=== PATIENT | male | born 1960 | race Hispanic/Latino ===

== ENCOUNTER 2018-01-20 11:14 | Day surgery (SDC) | payer BC, MEDICARE ==
[2018-01-20] MEDS ORDERED: Sodium Chloride 0.9% 30 ML ONE (12:22)
[2018-01-20] MEDS ORDERED: HYDROcodone/Acetaminophen 5/325 mg Tablet PO PRN (15:52)
[2018-01-20 17:45] VITALS: BP 136/77; TEMP 98.3
== END 2018-01-20 17:45 | disposition home or self-care (01) ==
LOC: ONC/OP 11:14
PROVIDERS: ATTEND Internal Medicine Nephrology
PROC: 30233N1 Transfusion of Nonautologous Red Blood Cells into Peripheral Vein, Percutaneous Approach (ICD-10-PCS; principal; 2018-01-20)
DX: N18.9 Chronic kidney disease, unspecified (principal); D63.1 Anemia in chronic kidney disease
CPT/HCPCS: 36430; 86850; 86900; 86901; A4216; P9016

== ENCOUNTER 2018-03-23 01:38 | Inpatient (IN) | payer MEDICARE, BC ==
[2018-03-23 02:13] LABS: #Eosinphils 0.1 thou/uL (0.0-0.7); #Lymphocytes 1.9 thou/uL (1.20-3.40); #Monocytes 0.9 thou/uL (0.11-0.59); #Neutrophils 5.6 thou/uL (1.40-6.50); %Basophils 0.2 % (0.0-1.0); %Eosinophils 1.4 % (0.0-10.0); %Lymphocytes 22.5 % (21.0-51.0); Hemoglobin 10.9 g/dL (14.0-18.0); Mean Corpuscular HGB CONC 31.4 g/dL (32.0-36.0); Mean Corpuscular Hemoglobin 30.6 pg (27.0-31.0); Mean Corpuscular Volume 97.6 fl (80.0-94.0); Mean Platelet Volume 6.6 fL (7.4-10.4); Platelet Count 303 thou/uL (130-400); RBC Distribution Width 16.8 % (11.5-14.5); Red Blood Cell (RBC) Count 3.55 mill/uL (4.70-6.10); White Blood Cell (WBC) Count 8.6 thou/uL (4.8-10.8)
[2018-03-23] MEDS ORDERED: Morphine 4 MG/ML VIAL ONE ×2 (02:17→03:22)
[2018-03-23] MEDS ORDERED: Ondansetron ODT 4 MG TAB ONE ×2 (02:18→02:23)
[2018-03-23 02:30] LABS: INR-International Normal Ratio 2.5; PTT 49.1 SEC (22.9-36.1); Prothrombin Time 28.1 SEC (12.0-14.7)
[2018-03-23 02:37] LABS: ALT (SGPT) 13 U/L (8-55); AST (SGOT) 12 U/L (5-34); Albumin 4.1 g/dL (3.5-5.0); Alkaline Phosphatase 140 U/L (40-150); Anion Gap 15 mmol/L (10-20); BUN (Urea Nitrogen) 26 mg/dL (8.4-25.7); Bilirubin, Total 0.6 mg/dL (0.2-1.2); Calc. Creatinine Clearance 0 mL/min (70-130); Calcium 9.7 mg/dL (7.8-10.44); Carbon Dioxide 32 mmol/L (22-29); Chloride 95 mmol/L (98-107); Estimated GFR-MDRD 9; Globulin 3.5 g/dL (2.4-3.5); Glucose 136 mg/dL (70-105); Lipase 89 U/L (8-78); Protein, Total 7.6 g/dL (6.0-8.3); Sodium 137 mmol/L (136-145)
[2018-03-23] MEDS ORDERED: Promethazine HCl 25 MG/ML VIAL ONE (02:46)
[2018-03-23 02:52] LABS: CKMB 0.8 ng/mL (0-6.6); Troponin I 0.022 ng/mL (< 0.028)
[2018-03-23] MEDS ORDERED: Phytonadione 10 MG/ML AMP SLOW IVP SCH ×2 (03:30→03:45)
[2018-03-23] MEDS ORDERED: HUMAN PROTHROMBIN COMPLX IV SCH (03:30)
[2018-03-23] MEDS ORDERED: ADMIXTURE FEE IV SCH (03:30)
[2018-03-23 03:59] LABS: Hemoglobin 9.5 g/dL (14.0-18.0)
[2018-03-23] MEDS ORDERED: Phytonadione 10 MG/ML AMP ONE (04:22)
[2018-03-23] MEDS ORDERED: Morphine 4 MG/ML VIAL SLOW IVP PRN (05:10)
[2018-03-23] MEDS ORDERED: Ondansetron PF 4 MG/2 ML Vial IVP PRN ×2 (05:12→06:03)
[2018-03-23] MEDS ORDERED: Ondansetron ODT 4 MG TAB SL PRN (05:12)
[2018-03-23] MEDS ORDERED: HumaLOG 300 UNITS/3 ML VIAL SC PRN ×2 (06:03)
[2018-03-23] MEDS ORDERED: hydrALAZINE 20 MG/ML VIAL SLOW IVP PRN (06:03)
[2018-03-23] MEDS ORDERED: Dextrose 5% in Water 1,000 ML IV PRN (06:03)
[2018-03-23] MEDS ORDERED: Ondansetron ODT 4 MG TAB PO PRN (06:03)
[2018-03-23 06:46] VITALS: BMI 1260.0
--- NOTE | 2018-03-23 07:24 | HP ---
PRIMARY CARE PHYSICIAN: Dr. Serna PRIMARY CEMENT MASON: Dr. Norris. CHIEF COMPLAINT: Left lower quadrant abdominal pain. HISTORY OF PRESENT ILLNESS: This is a 57-year-old male who presents to [facility] Emergency Department complaining of sudden onset of lower quadrant abdominal pain with associated angeline sis x2. The patient states he was at home watching TV when he noticed a sudden stabbing sensation in his left lower abdomen without specific trauma, injury, fall or increased activity level. The patie nt denies any specific diarrhea, change to his bowel habits or blood in the urine. The patient is re ceiving hemodialysis Tuesday, Tuesday, Tuesday with known end-stage renal disease, status post right nephrectomy. The patient denied any specific fever or chills, but had associated nausea and vomiting . The patient did not take any specific medications at home to relieve the symptoms and presented to the emergency room for evaluation. In the emergency room, patient underwent CT imaging of the abdom en and pelvis showing evidence of a left subcapsular and retroperitoneal hemorrhage in the context of chronic Coumadin therapy for right lower extremity DVT. The patient states he was diagnosed jazz oliveira 4 months prior with right lower extremity DVT and placed on Coumadin, monitored on a weekly ba sis. INR in the emergency room was noted 2.5, at which point the patient received vitamin K 10 mg IV push as well as Kcentra 1000 units x1 dose. The patient also received a total of 8 mg of morphine s ulfate, Phenergan and Zofran intravenously. The patient was also noted with a hemoglobin level rangi ng between 9.5-10.9, previously noted 11.9 on 02/27/2018. The patient was referred to the [facility] t Service for evaluation and admission. PAST MEDICAL HISTORY: 1. End-stage renal disease with hemodialysis Tuesday, Tuesday, and Tuesday. 2. Hypertension. 3. Right lower extremity deep venous thrombosis on chronic Coumadin. 4. Diabetes mellitus type 2 on oral hypoglycemics. PAST SURGICAL HISTORY: 1. Status post renal transplant. 2. Status post peritoneal dialysis catheter placement in 2014. 3. Status post right upper extremity AV fistula placement. CURRENT MEDICATIONS: Based on pervious admission. 1. Lipitor 80 mg p.o. at bedtime. 2. Calcium with vitamin D 1 tablet p.o. b.i.d. 3. Nifedipine XL 90 mg p.o. daily. 4. Actos 45 mg p.o. daily. 5. Calcitriol 0.5 mcg p.o. daily. 6. Clonidine 0.2 mg p.o. t.i.d. 7. Amaryl 4 mg p.o. q.a.m. 8. CellCept 1000 mg p.o. b.i.d. 9. Prednisone 5 mg p.o. daily. 10. Sodium bicarbonate 2600 mg p.o. b.i.d. 11. Prograf 3 mg p.o. b.i.d. ALLERGIES: No known drug allergies. FAMILY HISTORY: Mother and father are . No inheritable diseases per patient report. SOCIAL HISTORY: No alcohol, tobacco or illicit drug use. with 3 children. Resides in the [facility]. REVIEW OF SYSTEMS: The following complete review of systems was negative, unless otherwise mentioned in the HPI or below: Constitutional: Weight loss or gain, ability to conduct usual activities. Skin: Rash, itching. Eyes: Double vision, pain. ENT/Mouth: Nose bleeding, neck stiffness, pain, tenderness. Cardiovascular: Palpitations, dyspnea on exertion, orthopnea. Respiratory: Shortness of breath, wheezing, cough, hemoptysis, fever or night sweats. Gastrointestinal: Poor appetite, abdominal pain, heartburn, nausea, vomiting, constipation, or diarrhea. Genitourinary: Urgency, frequency, dysuria, nocturia. Musculoskeletal: Pain, swelling. Neurologic/Psychiatric: Anxiety, depression. Allergy/Immunologic: Skin rash, bleeding tendency. PHYSICAL EXAMINATION: VITAL SIGNS: On admission, blood pressure 191/108, pulse 81, respiratory rate 26, temperature 97.6 d egrees Fahrenheit, O2 saturation 100% on room air. GENERAL APPEARANCE: This is a 57-year-old male, alert and oriented x3, pleasant, conversant , in no acute distress. HEENT: Pupils are equal, round, reactive to light and accommodation. Extraocular muscles are intact . No scleral icterus, no conjunctival injection. Nares patent. OP is clear. NECK: Supple, no cervical adenopathy, no thyromegaly, no carotid bruits, no JVD appreciated. Cervic al spine full active and passive range of motion. No meningeal signs appreciated. CHEST: Lungs are clear to auscultation bilaterally. CARDIOVASCULAR: S1, S2 with a 1/6 systolic ejection murmur loudest in the left upper sternal border. ABDOMEN: Rounded, soft, with tenderness to palpation in the left upper and left lower quadrant. No rebound or guarding noted. No palpable mass. Bowel sounds are positive in all 4 quadrants. EXTREMITIES: Warm and dry with fair turgor. Right lower extremity is larger than left lower extremi ty at the calf. Pulses are palpable distally at the dorsalis pedis, posterior tibial, and popliteal arteries bilaterally. Capillary refill less than 2 seconds. NEUROLOGIC: Cranial nerves II-XII are grossly intact. No focal or lateralizing signs appreciated. PERTINENT LABORATORY AND X-RAY FINDINGS: Sodium 137, potassium 5.0, chloride 95, CO2 of 32, BUN 26, creatinine 6.48, estimated GFR of 9, glucose 136, calcium 9.7. LFTs within normal limits. BNP 661. Lipase 89. CBC showed a hemoglobin ranging between 9.5-10.9, MCV 98, platelet count 303 with normal differential. PT 28.1, INR 2.5, PTT 49.1. CT of the abdomen and pelvis dated 03/23/2018 showed a left subcapsular and retroperitoneal hemorrhag e. Portable chest x-ray dated 03/23/2018 by my interpretation shows no acute cardiopulmonary process . EKG dated 03/23/2018 by my interpretation shows a sinus mechanism with heart rate in the 80s. Nor mal R-wave progression noted in the precordial leads. Left axis deviation noted. No acute ST-T wave changes appreciated. ASSESSMENT AND PLAN: 1. Left renal hemorrhage. The patient will be admitted to the Critical Care Unit. Suspect spontane ous in the context of chronic Coumadin therapy. We will consult Urology and Nephrology Service. Ser ial H&H monitoring. Pain control with morphine sulfate 4 mg IV q.4h. p.r.n. 2. Acute on chronic macrocytic anemia. Suspect secondarily to acute hemorrhage and blood loss due t o #1. Continue serial H&H monitoring. CBC in the a.m. 3. End-stage renal disease with hemodialysis. We will consult Nephrology Service for ongoing timing of hemodialysis. No current evidence to suggest acute volume overload. 4. Diabetes mellitus type 2. Insulin sliding scale for reflexive coverage. Accu-Cheks before meals and at bedtime. ADA diet. 5. Hypertension. Resume home antihypertensive regimen and monitor serial blood pressure trend. 6. Prophylaxis. Hold devices due to prior history of right lower extremity DVT, Pepcid 20 mg p.o. b.i.d. 7. Code status is full. Surrogate medical decision maker is the patient's spouse.
[2018-03-23] MEDS ORDERED: Epoetin (ESRD) 10,000 UNITS/ML VIAL SC SCH (08:45)
[2018-03-23] MEDS: cloNIDine 0.2 MG TAB PO SCH ×3 (09:00→22:01)
--- NOTE | 2018-03-23 09:01 | CT ---
PRELIMINARY REPORT/[facility]/EMERGENTY AFTER-HOURS PROCEDURE Findings discussed with BLAIR SALAS MD at time of interpretation. Initial Report created on 03/23/2018 2:53 AM Central Time ([place] & [place]) CT Abdomen and Pelvis With Intravenous Contrast EXAM DATE/TIME: Exam ordered 03/23/2018 2:29 AM CLINICAL HISTORY: 57 years old, male; Pain; Abdominal pain; Localized; Left lower quadrant (llq); Prior surgery; Patien t HX: Abrupt onset llq abdominal pain. 2 episodes of emesis since. Waxing and waning in intensity. De nies inguinal or testicular pain. Denies changes in bms. Has HX of HTN and renal failure, on dialysis mwf, anuric now. S/P right nephrectomy. TECHNIQUE: Axial computed tomography images of the abdomen and pelvis with intravenous contrast. Coronal reforma tted images were created and reviewed. COMPARISON: No relevant prior studies available. FINDINGS: Lung bases: Bibasilar subsegmental atelectasis. Pleural space: Trace right pleural effusion. ABDOMEN: Liver: Unremarkable. No mass. Gallbladder and bile ducts: Unremarkable. No calcified stones. No ductal dilation. Pancreas: Unremarkable. No mass. No ductal dilation. Spleen: Unremarkable. No splenomegaly. Adrenals: Unremarkable. No mass. Kidneys and ureters: Multiple indeterminate low attenuation lesions in both kidneys, the largest of w hich measures 3.2 cm and the right kidney, potentially hyperdense cysts. Neoplasm not excluded. There is extensive left perinephric/paranephric hematoma and contusion extending 19 cm in maximum dimensio n (craniocaudal). In addition, there is a 10 cm (craniocaudal) subcapsular left renal hematoma. There are multiple large foci of extravasated intravascular contrast in both the subcapsular and perinephr ic hematomas, indicating brisk active hemorrhage. Endstage renal disease of both kidneys which are ma rkedly atrophic and demonstrate marked cortical thinning. Stomach and bowel: Colonic diverticulosis. No diverticulitis. No bowel wall thickening or intestinal obstruction. PELVIS: Appendix: Normal appendix. Bladder: Unremarkable. No mass. Reproductive: Unremarkable as visualized. ABDOMEN and PELVIS: Intraperitoneal space: Unremarkable. No free air. No significant fluid collection. Bones/joints: No acute fracture. No dislocation. Soft tissues: Right inguinal hernia containing fat only. Vasculature: Unremarkable. No abdominal aortic aneurysm. Lymph nodes: Unremarkable. No enlarged lymph nodes. IMPRESSION: 1. Large actively hemorrhaging subcapsular left renal and left perinephric/paranephric hematomas. The re is underlying marked atrophy and cortical thinning of both kidneys which demonstrate endstage renal disease. Allowing for this, it is difficult to tell if the left subcapsular renal hematoma is c ompressing the renal parenchyma (Page kidney) or not. Correlate for coagulopathy and history of traum a. 2. Multiple indeterminate low attenuation lesions in both kidneys, the largest of which measures 3.2 cm and the right kidney, potentially hyperdense cysts. Neoplasm not excluded. Thank you for allowing us to participate in the care of your patient. Dictated and Authenticated by: Dave Berrios MD 03/23/2018 2:53 AM Central Time ([place] & [place]) FINAL REPORT CT ABDOMEN AND PELVIS WITH CONTRAST: Date: 03/23/18 HISTORY: Left lower quadrant pain. History of right nephrectomy. COMPARISON: None. FINDINGS: Mild interstitial thickening lung bases. Small effusions. There are a few ground-glass opacities in t he right middle lobe. Heart size mildly enlarged. Large subcapsular hematoma with active contrast extravasation from the left kidney with moderate size retroperitoneal hematoma. Kidneys are atrophic. Moderate diverticular disease sigmoid colon. Evidenc e of right pelvic surgery. IMPRESSION/IMPRESSION: Findings and impression are concordant with the preliminary report by Zackary. POS: [facility]
--- NOTE | 2018-03-23 09:06 | RAD ---
CHEST 1 VIEW: HISTORY: Chest pain. Emesis. Left lower quadrant pain. COMPARISON: Exam from 2006. FINDINGS: Heart size is upper limits of normal. Mild increased interstitial markings. No focal airspace conso lidation. Mild blunting of both lateral costophrenic sulci. IMPRESSION: Mild cardiomegaly and early edema/volume overload. POS: [facility]
[2018-03-23 09:50] LABS: Hemoglobin 8.9 g/dL (14.0-18.0)
[2018-03-23 09:56] LABS: INR-International Normal Ratio 1.4
--- NOTE | 2018-03-23 11:02 | CON ---
DATE OF CONSULTATION: 03/23/2018 RENAL MEDICINE HISTORY OF PRESENT ILLNESS: Mr. Davison is a 57-year-old male with ESRD, failed renal trans plant, recently status post transplant nephrectomy, status post DVT and admitted for abdominal pain. This was said to be acute in onset. CT scan of the abdomen showed retroperitoneal hemorrhage of the kidney. His Coumadin has been placed on hold. He has received vitamin K and Kcentra. He is curren tly on pain control. We are now being consulted for his maintenance hemodialysis. Please note the p antionette did receive dialysis yesterday. He still has an abdominal pain as of this morning. REVIEW OF SYSTEMS: Positive for abdominal pain. No chest pain or shortness of breath, no nausea, no vomiting, no diarrhea, no constipation, no fever or chills, no gross hematuria, no diarrhea, no sync opal episode, no sore throat, no joint pains, no new skin rash, no dysuria, no hematochezia, no melen a, no hematemesis. PAST MEDICAL HISTORY: ESRD - maintenance hemodialysis Tuesday, Tuesday, and Tuesday, longstanding hy pertension, type 2 diabetes mellitus, status post DVT. PAST SURGICAL HISTORY: 1. Status post failed renal transplant. 2. Status post transplant nephrectomy of allograft. 3. Status post PD catheter placement with subsequent removal. 4. Status post cuffed hemodialysis catheter placement. 5. Status post AV fistula placement. HOME MEDICATIONS: Include the following; Lipitor 80 mg at bedtime, calcium 1 tab b.i.d., nifedipine XL 90 mg daily, Actos 45 mg daily, calcitriol 0.5 mcg daily, clonidine 0.2 mg p.o. t.i.d., Amaryl 4 m g q.a.m. SOCIAL HISTORY: The patient is . He has 3 children. He lives in [place]. He is a retired forger. He denies any history of smoking, no alcohol intake. Status post blood transfusion. No IV drug abuse. Education high school. ALLERGIES: None. TRAUMA: None. IMMUNIZATIONS: Up to date. HOSPITALIZATIONS: Please see past medical history. FAMILY HISTORY: No family history of ESRD. PHYSICAL EXAMINATION: VITAL SIGNS: Blood pressure is noted at 103/74, heart rate 88, respiratory rate 10, pulse ox 100%. GENERAL: Awake, supine, comfortable, not in overt distress. SKIN: Adequate turgor. HEENT: He has slightly pale conjunctivae, anicteric sclerae. NECK: No neck mass, no carotid bruits, no JVD. CHEST: No deformities. LUNGS: Clear breath sounds, no wheezing, no crackles. HEART: Normal sinus rhythm. No murmurs, no gallops, no rubs. ABDOMEN: Globular, soft, nontender, no masses. EXTREMITIES: No edema, no deformities. NEUROLOGIC: Moving all extremities. No tremors, asterixis, no ataxia. LABORATORY DATA: Laboratories of 03/23/2018; white count 8.6, hemoglobin 9.5, hematocrit 29.2. Sodi um 137, potassium 5, chloride 95, carbon dioxide 32, BUN 26, creatinine 6.48, calcium 9.7, AST 12, AL T 13, albumin 4.1, lipase 89, BNP 661. ASSESSMENT AND PLAN: 1. Retroperitoneal hemorrhage - Coumadin has been placed on hold. He has received vitamin K and Kce ntra. Continue supportive care. Continue serial monitoring of the hemoglobin and hematocrit. Urolo gy consult has been done. 2. End-stage renal disease, stable. No indication for any emergent dialytic intervention. My plan is to continue current Tuesday, Tuesday, and Tuesday dialysis. We will be using no heparin due to recent retroperitoneal hemorrhage. 3. Hypertension. Continue current blood pressure meds. 4. Review of the last Kt/V suggests this patient is adequately dialyzed with the current dialysis re [facility]. 5. Anemia. Start Epogen 10,000 units subcu every week.
--- NOTE | 2018-03-23 11:04 | CON ---
DATE OF CONSULTATION: 03/23/2018 REASON FOR CONSULTATION: ICD placement. Consultation encompasses 30 minutes time, of that time greater than 50% set with the patient and/or t he patient floor. HISTORY OF PRESENT ILLNESS: The patient is a 57-year-old male who presented to the hospital last nig ht with fairly acute onset of left lower quadrant pain. He is currently being anticoagulated for a r ight lower extremity DVT. It looks like on 02/27/2018, the ultrasound was repeated of the right lowe r extremity, which showed resolution of the clot. Last night when he came in, his INR was 2.5. He w as reversed with vitamin K. and Kcentra. CT demonstrated a hematoma within the parenchyma of the lef t kidney. PAST MEDICAL HISTORY: 1. End-stage renal disease, requiring dialysis. 2. Hypertension. 3. Recent right lower extremity thrombosis - he has been on anticoagulation for 3 months. 4. Diabetes mellitus type 2. PAST SURGICAL HISTORY: 1. Renal transplant, subsequent kidney removal. 2. Peritoneal dialysis. 3. Right extremity AV fistula placement. MEDICATIONS: Prior to admission, Lipitor 80 mg daily, calcium 1 tablet twice daily, nifedipine XL 90 mg daily, Actos 45 mg daily, calcitriol 0.4 mcg daily, clonidine 0.2 mg t.i.d., Amaryl 4 mg every mo rning, CellCept 1000 mg b.i.d., prednisone 5 mg daily, sodium bicarbonate 2600 mg b.i.d., Prograf 3 m g b.i.d. ALLERGIES: None. FAMILY MEDICAL HISTORY: Unremarkable. SOCIAL HISTORY: Nonsmoker, nondrinker. REVIEW OF SYSTEMS: A 12-point review of systems was negative except for back pain. PHYSICAL EXAMINATION: VITAL SIGNS: Temperature 98.3, pulse 103, blood pressure 103/74, O2 sat 100% on room air. GENERAL: He is awake, alert, and in no distress. HEENT: Pupils react. Sclerae anicteric. Oropharynx clear. NECK: Without adenopathy or JVD. LUNGS: Clear. CARDIOVASCULAR: S1, S2 regular. ABDOMEN: Tenderness along the left flank. EXTREMITIES: No clubbing, cyanosis, or edema. LABORATORY DATA: Sodium 137, potassium 5, chloride 95, CO2 of 32, BUN 26, creatinine 6.4, glucose 13 6. BNP 661. INR of less than 2.5. Hemoglobin 9.5, hematocrit 29.2. CT was reviewed. Chest x-ray shows no mass, effusion or infiltrate. ASSESSMENT: 1. Left kidney hematoma. 2. Recent deep venous thrombosis. 3. Chronic renal failure. PLAN: 1. Anticoagulation has been reversed. He is getting followup coagulation and hemoglobin and hematoc rit. 2. Given 3 months of anticoagulation for the DVT and resolution of the ultrasound, I would recommend not giving him further anticoagulation for that. Also, an IVC filter would not specifically be donald cated at this time.
[2018-03-23] MEDS: Sodium Bicarbonate Tab 325 MG TAB PO SCH ×2 (11:11→22:04)
[2018-03-23] MEDS: Calcitriol 0.25 MCG CAP PO SCH (11:12)
[2018-03-23] MEDS: Famotidine 20 MG TAB PO SCH (11:12)
[2018-03-23] MEDS: predniSONE 5 MG TAB PO SCH (11:13)
[2018-03-23] MEDS: Glimepiride 4 MG TAB PO SCH (11:13)
[2018-03-23] MEDS: Mycophenolate 250 MG CAP PO SCH ×2 (11:15→22:01)
[2018-03-23] MEDS: Tacrolimus 1 MG CAP PO SCH (11:16)
[2018-03-23 12:41] LABS: Hemoglobin 8.4 g/dL (14.0-18.0)
[2018-03-23] MEDS ORDERED: ISOVUE-370 76%-LOCM 1 ML ONE (13:34)
[2018-03-23] MEDS: HYDROcodone/Acetaminophen 5/325 mg Tablet PO PRN (15:28)
[2018-03-23] MEDS: Morphine 4 MG/ML VIAL SLOW IVP PRN (15:55)
--- NOTE | 2018-03-23 17:18 | PDOC.EVN ---
Event Note - Event Note Event Note: called patient's transplant physician Dr. Mackenzie @ [phone] and was sent to a nonlabeled voicemail this was a call requested by the patient's family left my name and cell phone number ([phone]) without any patient identifiers, indicating this is a courtesy call and requesting a callback awaiting callback at this time
--- NOTE | 2018-03-23 18:17 | CT ---
ABDOMEN CT WITHOUT CONTRAST PELVIC CT WITHOUT CONTRAST 03/23/18 HISTORY: Decreased hemoglobin. Past medial history of right nephrectomy. Left lower quadrant abdominal pain. TECHNIQUE: An abdomen and pelvic CT are performed without IV or enteric contrast. Coronal reformatted images are submitted for interpretation. FINDINGS: ABDOMEN CT: Interval increase in size of bilateral pleural effusions with adjacent consolidation due to atelectas is or pneumonia. Stable configuration of the cardiac silhouette. Stable aorta. There is vicarious exc retion of contrast into the gallbladder. Limited evaluation of the solid organs by the lack of IV contrast. Grossly, there is no solid organ a bnormality. There is atrophy of the pancreas. There is interval development of perihepatic fluid with attenuation coefficient of 53 Hounsfield unit s suggesting blood. There is no gastrohepatic, retrocrural or periportal lymphadenopathy. There is a stable diminutive right kidney. There is abnormal attenuation in the left renal fossa. The degree of perinephric hemorrhage and fluid appears to have increased when compared to the previous examination. At the level of the aortic bifu rcation, currently there is a 7.8 x 8.4 cm hematoma. Previously, the hematoma in this region was 5.2 x 5.9 cm. There is mass effect upon the left psoas muscle. There is increased fluid in both pericolic gutters. Limited evaluation of the alimentary canal due to lack of oral contrast. No evidence of high grade ob struction. PELVIC CT: Urinary bladder is unremarkable. There is free fluid in the pelvis. No mass, lymphadenopathy, or free air. No lytic or blastic lesion in the osseous structures. IMPRESSION: 1. Increasing left nephric/perinephric hematoma. 2. Interval development of bilateral pleural effusions. Adjacent consolidation due to atelectasi s or pneumonia. 3. Interval development of perihepatic complex fluid/blood. 4. Results of the study discussed with Dr. Yao, 03/23/18 at 6:05 p.m. Code CR POS: [facility]
--- NOTE | 2018-03-23 20:04 | CON ---
DATE OF CONSULTATION: 03/23/2018 The patient actually physically saw this morning and dictating as I came back to see him later in the day. HISTORY OF PRESENT ILLNESS: He is a 57-year-old male. A number of years ago, I belie ve it was about 10 years ago, he had a kidney transplant done in [place]. It was done because of end -stage renal disease from hypertension. He does not have a history of diabetes or vascular disease c ausing the renal failure apparently is all hypertension. He had that kidney removed in November is year and I am not sure why it was removed and he is not clear as to why it was removed, but it was removed. I believe at the same transplant Center where he had the original transplant done and he w as been on dialysis starting about 4 months before removal and then for the last 4 months also. Curr ently, he is on hemodialysis 3 times a week. He developed a lower extremity deep vein thrombosis, it sounds like probably shortly after his transplant nephrectomy and he has been on anticoagulation sin ce yesterday without any trauma or any inciting event. He developed left flank pain that became dara re and he came in last evening. A CAT scan was done with contrast that showed he had a spontaneous b leed in and around his left kidney. His right kidney is quite small. It looked like he was having s ome persistent bleeding at that time. At that point, his Coumadin was reversed and I believe his INR is just about normal currently. He actually had felt much better through the day and then just this afternoon, he starting again some increasing pain on the left side, although his pulse is much art r. I believe his pulse was initially elevated. Currently, it is in the high 80s, which looks like w here it has been most of the afternoon it was in the 90s and in the low 100s when he first came in. He is anuric. He does not produce any urine, so he is dialysis dependent for volume. When he came i n, his hemoglobin was 10.9 and it has drifted down, it was 9.58, 9.84 and most recently 8.4, it is no t going to be drawn in about 45 minutes to an hour. He has seen Dr. Norris. He does not feel he is nee ding dialysis today, but will likely dialyze him tomorrow on no heparin. He is typed and crossed. H is CAT scan does show that hematoma as mentioned, it shows a small right kidney. PAST MEDICAL HISTORY: He has a recent DVT and it appears that he will probably be able to be kept of f anticoagulation currently. He has hypertension. He has end-stage renal disease from his hypertens ion. He does have diabetes. He does have a right AV fistula. He has had a history of peritoneal di alysis catheter placed and removed. PAST SURGICAL HISTORY: He has had transplant and removal of transplant. MEDICATIONS: His medications are well documented. ALLERGIES: He has no allergies. PHYSICAL EXAMINATION: He has a left flank tenderness and left-sided abdominal tenderness. This was a bit worse this afternoon than it was this morning when I saw him. As mentioned, vital signs currently, his pulse is 86. His blood pressure is 147/77. His O2 sat is g ood. IMPRESSION: Spontaneous left renal bleed in a patient with end-stage renal disease and anuric. His bleed was likely related to anticoagulation. Anticoagulation has been reversed and his hemoglobins a lthough they have just been drifting down or not to the point where you would think that he would nee d current transfusion, but next hemoglobin will be telling. I think if his hemoglobin continues to d rop or if his symptoms worsen that cardiac surgery maybe consider embolizing him and if so, we will p robably need to embolize the main left renal artery and let the left kidney go as it start functionin g currently and it would only be the source of further bleeding down the road for him during this adm ission or others. Thankfully, it appears that he will not require more anticoagulation for the DVT. I will follow along with you.
[2018-03-23 20:39] LABS: Hemoglobin 7.1 g/dL (14.0-18.0)
--- NOTE | 2018-03-23 22:04 | PDOC.PN ---
- Subjective Encounter Start Date: 03/23/18 Encounter Start Time: 12:00 Subjective: nsg notes rev, royce ovn, pt no new c/o, does not have continued -: pain, family @ bedside, no new questions - Objective Resuscitation Status: Resuscitation Status FULL:Full Resuscitation Vital Signs & Weight: Vital Signs (12 hours) Temp Pulse Resp BP Pulse Ox 03/23/18 20:00 98.0 F 94 12 100 03/23/18 19:00 98.0 F 03/23/18 17:17 142/89 H 03/23/18 16:00 98.4 F 03/23/18 12:00 98.2 F Weight Admit Weight 179 lb Weight 179 lb 3.773 oz Most Recent Monitor Data Heart Rate from ECG 101 NIBP 110/69 NIBP BP-Mean 79 Respiration from ECG 18 SpO2 100 I&O: 03/22/18 03/23/18 03/24/18 06:59 06:59 06:59 Intake Total 720 Output Total 30 Balance 690 Result Diagrams: 03/24/18 06:07 03/24/18 03:48 Additional Labs: Accuchecks 03/23/18 03/23/18 03/23/18 17:25 11:28 06:44 POC Glucose 146 H 121 H 150 H Phys Exam - Physical Examination Constitutional: NAD HEENT: moist MMs, sclera anicteric, oral pharynx no lesions Respiratory: no wheezing, no rales, no rhonchi, clear to auscultation bilateral Cardiovascular: RRR, no rub Gastrointestinal: soft, positive bowel sounds Musculoskeletal: pulses present Neurological: moves all 4 limbs Psychiatric: normal affect, A&O x 3 Dx/Plan - Plan * hx ESRD on HD M/W/F and prior renal transplant * apprec nephrology c/s bleed - L renal capsule * serial H/H * conservative mgmt * recheck INR * apprec critical care c/s recent DVT on a/c w/ coumadin * vit K prev adm * currently no DVT noted on U/S * continue to hold coumadin diet: renal activity: as acosta dvt ppx Review of Systems - Medications/Allergies Allergies/Adverse Reactions: Allergies Allergy/AdvReac Type Severity Reaction Status Date / Time No Known Allergies Allergy Verified 12/15/15 17:56 Medications: Current Medications Acetaminophen (Tylenol) 1,000 mg PO Q6H PRN PRN Reason: Headache/Fever or Mild Pain Hydrocodone Bitart/Acetaminophen ([place] 5/325) 1 tab PO Q4H PRN PRN Reason: Moderate Pain (4-6) Hydrocodone Bitart/Acetaminophen ([place] 5/325) 2 tab PO Q4H PRN PRN Reason: Severe Pain (7-10) Last Admin: 03/23/18 15:28 Dose: 2 tab Calcitriol (Rocaltrol) 0.5 mcg PO DAILY [facility] Last Admin: 03/23/18 11:12 Dose: 0.5 mcg Clonidine (Catapres) 0.1 mg PO Q4H PRN PRN Reason: Systolic BP > 180 Clonidine (Catapres) 0.2 mg PO TID [facility] Last Admin: 03/23/18 22:01 Dose: Not Given Dextrose/Water (Dextrose 50%) 25 gm SLOW IVP PRN PRN PRN Reason: Hypoglycemia Last Admin: 03/24/18 04:45 Dose: 25 gm Epoetin Joey (Procrit) 10,000 units SC Q7D [facility] Last Admin: 03/23/18 11:14 Dose: 10,000 units Famotidine (Pepcid) 20 mg PO DAILY [facility] Last Admin: 03/23/18 11:12 Dose: 20 mg Glimepiride (Amaryl) 4 mg PO QAM-[facility] Last Admin: 03/23/18 11:13 Dose: 4 mg Glucagon (Glucagon) 1 mg IM PRN PRN PRN Reason: Hypoglycemia Hydralazine HCl (Apresoline) 10 mg SLOW IVP Q4H PRN PRN Reason: Systolic BP > 180 Dextrose/Water (D5w) 1,000 mls @ 0 mls/hr IV .Q0M PRN; As Directed PRN Reason: Hypoglycemia Insulin Human Lispro (Humalog) 0 units SC .MILD SLIDING SCALE PRN PRN Reason: Mild Correctional Scale Insulin Human Lispro (Humalog) 0 units SC .BEDTIME SLIDING SC PRN PRN Reason: Bedtime Correctional Scale Morphine Sulfate (Morphine) 4 mg SLOW IVP Q4H PRN PRN Reason: Moderate to Severe Pain (6-10) Last Admin: 03/24/18 06:26 Dose: 4 mg Mycophenolate Mofetil (Cellcept) 1,000 mg PO BID [facility] Last Admin: 03/23/18 22:01 Dose: Not Given Ondansetron HCl (Zofran Odt) 4 mg PO Q6H PRN PRN Reason: Nausea/Vomiting Ondansetron HCl (Zofran) 4 mg IVP Q6H PRN PRN Reason: Nausea/Vomiting Prednisone (Prednisone) 5 mg PO QAM-[facility] Last Admin: 03/23/18 11:13 Dose: 5 mg Sodium Bicarbonate (Bicarbonate, Sodium) 2,600 mg PO BID [facility] Last Admin: 03/23/18 22:04 Dose: 2,600 mg Tacrolimus (Prograf) 3 mg PO BID [facility] Last Admin: 03/24/18 03:12 Dose: Not Given
--- NOTE | 2018-03-23 22:12 | CON ---
DATE OF CONSULTATION: 03/23/2018 REQUESTING PHYSICIAN: Dr. Tacos Do, hospitalist service. CHIEF COMPLAINT: Left flank pain. HISTORY OF PRESENT ILLNESS: The patient is a 57-year-old dialysis patient who has been on Coumadin t herapy for deep venous thrombosis. He had a fairly sudden onset of left lower quadrant abdominal clay n and flank pain without any specific precipitating event and upon presentation at the hospital, a CT scan was done which suggested a retroperitoneal hematoma primarily consisting of left renal subcapsu lar hematoma. The patient's heart rate was in the 80s and blood pressure 191/108. As his pain was b rought under control, his blood pressure came down into the 110s and 120s over 80 to 90 range. His h eart rate stayed around 80. His hemoglobin on presentation was 10.9; about 3 weeks ago it had been 1 1.9. A followup hemoglobin about 2 hours later after presentation was 9.5. His PT was 28.1 with an INR of 2.5 and PTT was 49.1. PAST MEDICAL HISTORY: Significant for end-stage renal disease, hypertension. He describes having be en on Coumadin for about 3 months, but a recent lower extremity ultrasound showed resolution of his D VT. Patient about 10 years ago had a renal transplant that failed and he had a transplant nephrectom y. MEDICATIONS: In addition to Coumadin, which is being held, Lipitor, nifedipine XL, clonidine, calciu m supplements, Actos, Amaryl, Prograf, CellCept and prednisone. ALLERGIES: He denies any medical allergies. SOCIAL HISTORY: He does not smoke. REVIEW OF SYSTEMS: Negative for any recent illnesses. PHYSICAL EXAMINATION: VITAL SIGNS: Temperature is 98.3, heart rate has been in the 80s-90s, blood pressure 125/69. ABDOMEN: Soft with no palpable masses, but he is rather tender in his left abdomen and flank. There is no bruising visible on his flank. LABORATORY DATA: As above. His CT scan shows dissection planes around the left kidney, but much of the space occupying lesion there would seem to be edema fluid rather than blood. I really do not think that this would have to be something that one would treat with embolization as this would seem to represent simply a spontaneous hemorrhage related to Coumadin and should respond t o reversal of his anticoagulation.
[2018-03-24] MEDS: Tacrolimus 1 MG CAP PO SCH ×3 (03:12→20:04)
[2018-03-24 04:31] LABS: INR-International Normal Ratio 1.2; Prothrombin Time 15.4 SEC (12.0-14.7)
[2018-03-24 04:42] LABS: Anion Gap 16 mmol/L (10-20); BUN (Urea Nitrogen) 42 mg/dL (8.4-25.7); Calc. Creatinine Clearance 11 mL/min (70-130); Calcium 8.5 mg/dL (7.8-10.44); Carbon Dioxide 31 mmol/L (22-29); Chloride 95 mmol/L (98-107); Estimated GFR-MDRD 6; Potassium 6.2 mmol/L (3.5-5.1); Sodium 136 mmol/L (136-145)
[2018-03-24 04:44] LABS: Glucose 48 mg/dL (70-105)
[2018-03-24] MEDS: Dextrose 50% Abboject 50 ML SYRINGE SLOW IVP PRN ×2 (04:45→13:58)
[2018-03-24 06:03] LABS: Band 4 % (5-11); Hemoglobin 8.3 g/dL (14.0-18.0); Lymphocytes 21 % (21-51); MDiff Complete? YES; Mean Corpuscular HGB CONC 33.5 g/dL (32.0-36.0); Mean Corpuscular Hemoglobin 31.9 pg (27.0-31.0); Mean Platelet Volume 6.7 fL (7.4-10.4); Monocytes 6 % (0-10); Neutrophil 69 % (42-75); Platelet Count 245 thou/uL (130-400); Red Blood Cell (RBC) Count 2.59 mill/uL (4.70-6.10); White Blood Cell (WBC) Count 11.5 thou/uL (4.8-10.8)
[2018-03-24] MEDS: Morphine 4 MG/ML VIAL SLOW IVP PRN ×2 (06:26→21:19)
[2018-03-24 06:39] LABS: Hemoglobin 7.6 g/dL (14.0-18.0)
[2018-03-24] MEDS: predniSONE 5 MG TAB PO SCH (08:00)
[2018-03-24] MEDS: Glimepiride 4 MG TAB PO SCH (08:00)
[2018-03-24] MEDS: Sodium Bicarbonate Tab 325 MG TAB PO SCH (09:00)
[2018-03-24] MEDS: Calcitriol 0.25 MCG CAP PO SCH (09:00)
[2018-03-24] MEDS: Famotidine 20 MG TAB PO SCH (09:00)
[2018-03-24] MEDS: Mycophenolate 250 MG CAP PO SCH ×2 (09:00→20:04)
[2018-03-24] MEDS: cloNIDine 0.2 MG TAB PO SCH ×2 (09:00→15:00)
--- NOTE | 2018-03-24 10:27 | PRG ---
DATE OF SERVICE: 03/24/2018 SUBJECTIVE: The patient is continuing to have pain in the left flank. He is continuing to have issu es with bleeding on that side and he is scheduled to go down for embolization with Dr. Dale later to day. OBJECTIVE: VITAL SIGNS: On exam, his temperature is 98.2, pulse 99, blood pressure 106/78. A 24-hour intake 11 70, output 30. HEENT: Unremarkable. NECK: No JVD. LUNGS: Clear. CARDIAC: S1 and S2, regular. ABDOMEN: Left-sided flank pain. LABORATORY DATA: White blood cell count 11.5, hematocrit 24.6, platelet count 245. INR 1.2. Sodium 136, potassium 6.2, chloride 95, CO2 of 31, BUN 42, creatinine 8.6, glucose 110. ASSESSMENT: 1. Left kidney capsular bleed. 2. Status post renal transplant that was rejected. 3. Chronic renal failure, requiring hemodialysis. 4. Anemia, blood loss. 5. Recent deep venous thrombosis - clear by ultrasound a couple of weeks ago. PLAN: 1. Embolization today. 2. Follow serial hemoglobin and hematocrit. 3. We will likely need dialysis later today.
[2018-03-24] MEDS ORDERED: Lidocaine 1% (PF) 30 ML VIAL ONE ×2 (10:32→15:57)
--- NOTE | 2018-03-24 10:37 | PRG ---
DATE OF SERVICE: 03/24/2018 SUBJECTIVE: Mr. Davison is a 57-year-old male with ESRD on maintenance hemodialysis, status post failed renal transplant initially admitted for left flank pain. He was found to have significa nt left renal subcapsular hematoma. It could use to be around that area. His Coumadin has been plac ed on hold. He has gotten vitamin K. His hemoglobin is noted to be dropping. He is getting several units of packed RBC in the last 24 kai rs. The plan is for him to go a renal arterial embolization of the left renal artery. If this is no t successful, consideration for a left nephrectomy is being done. His potassium this morning was noted at 6.2 without any EKG changes. Our plan is to dialyze him after planned embolization of the left renal artery. No complaints of miriam st pain, no shortness of breath. PHYSICAL EXAMINATION: VITAL SIGNS: Blood pressure 127/72, heart rate 104, respiratory rate 18, pulse ox 96%. GENERAL: Awake, supine, comfortable, not in distress. SKIN: Adequate turgor. HEENT: He has slightly pale conjunctivae, anicteric sclerae. NECK: No neck mass, no carotid bruits, no JVD. CHEST: No deformities. LUNGS: Clear breath sounds, no wheezing, no crackles. HEART: Normal sinus rhythm. No murmurs, no gallops, no rubs. ABDOMEN: Globular, soft, nontender. EXTREMITIES: Positive for edema. MEDICATIONS: Medications of 03/24/2018 was reviewed. LABORATORY DATA: Laboratories of 03/24/2018; hemoglobin 7.6, sodium 136, potassium 6.2, chloride 95, carbon dioxide 31, BUN is 42, creatinine 8.61, glucose 48, calcium 8.5. IMAGING DATA: On 03/23/2018, CT scan of the abdomen and pelvis shows increasing left perinephric hem atoma, interval development of bilateral pleural effusions, interval development of perihepatic compl ex fluid/blood. ASSESSMENT AND PLAN: 1. Left perinephric hematoma/bleeding, bleeding kidneys - plan is for an arterial embolization with Dr. Mike Dale. If this is not successful, consideration for left nephrectomy is being done. 2. Anemia - p.r.n. blood transfusion. We will probably continue current Epogen regimen of 10,000 un its subcutaneously every week. 3. End-stage renal disease. Continue Tuesday, Tuesday, and Tuesday hemodialysis. After the said em bolization, we will schedule patient for his regular hemodialysis. Due to the recent bleed, no hepar in use is to be made. Overall, agree with current management.
--- NOTE | 2018-03-24 10:43 | PDOC.PN ---
- Subjective Encounter Start Date: 03/24/18 Encounter Start Time: 10:42 Subjective: nsg notes rev, royce ovn - Objective Resuscitation Status: Resuscitation Status FULL:Full Resuscitation Vital Signs & Weight: Vital Signs (12 hours) Temp Pulse Pulse Resp BP Pulse Ox 03/24/18 08:45 98.5 F 102 H 16 134/73 96 03/24/18 08:34 98.2 F 99 16 138/70 95 03/24/18 08:00 98.2 F 99 15 7 L 03/24/18 04:00 98.2 F 03/24/18 01:56 98.2 F 12 96 03/24/18 00:00 98.2 F 03/23/18 23:52 98.2 F 12 99 03/23/18 23:08 98.2 F Weight Admit Weight 179 lb Weight 179 lb 3.773 oz Most Recent Monitor Data Heart Rate from ECG 106 NIBP 125/74 NIBP BP-Mean 89 Respiration from ECG 13 SpO2 94 I&O: 03/23/18 03/24/18 03/25/18 06:59 06:59 06:59 Intake Total 1170 Output Total 30 0 Balance 1140 0 Result Diagrams: 03/25/18 15:28 03/25/18 03:34 Additional Labs: Accuchecks 03/24/18 03/24/18 03/24/18 08:29 06:34 05:29 POC Glucose 71 110 151 H 03/23/18 03/23/18 03/23/18 23:52 17:25 11:28 POC Glucose 100 146 H 121 H Dx/Plan - Plan * hx ESRD on HD M// and prior renal transplant * apprec nephrology c/s bleed - L renal capsule * serial H/H, s/p pRBC ovn for decrease in H/H * for embolization today * apprec VIR c/s * recheck INR * apprec critical care c/s recent DVT on a/c w/ coumadin * vit K prev adm * currently no DVT noted on U/S * continue to hold coumadin diet: renal activity: as acosta dvt ppx
[2018-03-24 13:29] LABS: Platelet Count 207 thou/uL (130-400)
[2018-03-24] MEDS ORDERED: Iopamidol 370 76% 50 ML VIAL FS ONE (13:52)
[2018-03-24] MEDS ORDERED: Dextrose 5% in Water 1,000 ML IV SCH (14:45)
[2018-03-24] MEDS ORDERED: Midazolam HCl 2 mg/2 ml Vial ONE (16:53)
[2018-03-24] MEDS ORDERED: Fentanyl 100 MCG/2 ML VIAL ONE (16:53)
--- NOTE | 2018-03-24 18:56 | OP ---
DATE OF PROCEDURE: 03/24/2018 PREOPERATIVE DIAGNOSIS: Left renal perinephric hematoma. POSTOPERATIVE DIAGNOSIS: Left renal perinephric hematoma. PROCEDURES: 1. Abdominal aortogram. 2. Selective left renal artery angiogram. 3. Embolization of the left main renal artery with 3 x 5.2 interlock detachable coils. SURGEON: Mike Dale M.D. ANESTHESIA: 1% lidocaine for local, 1 mg Versed/25 mcg fentanyl. ESTIMATED BLOOD LOSS: Less than 10. CONTRAST: 19 mL FLUORO TIME: 2.5 minutes. DESCRIPTION OF PROCEDURE: After consent was obtained, the patient was brought the labor specialist, placed i n supine position on the labor specialist table. Appropriate monitoring was placed. IV sedation was given. Left groin was prepped and draped in usual sterile fashion. Using ultrasound guidance, the left breanne in was anesthetized over the left common femoral artery. Common femoral artery was then accessed usi ng ultrasound guidance with a micropuncture needle and wire. Sheath was placed and then exchanged fo r a 6-[place] sheath over a 0.035 guidewire. A guiding catheter was placed in the abdominal aorta. A bdominal aortogram was performed in the left renal artery localized. The left renal artery orifice w as cannulated and a 0.035 guidewire passed. The angled Rubio catheter was passed over the guidew karen into the renal artery. Hand injected arteriogram was performed confirming this was left renal ar ned and confirming our location. A 3 x 5.2 interlock coil was selected and 3 separate coils placed with good positioning and the main left renal artery. Catheters and guidewires were removed. Sheath was removed and manual pressure held for hemostasis. The patient tolerated procedure well, and was transferred back to the Intensive Care Unit in stable condition.
[2018-03-24] MEDS: Acetaminophen 500 MG TAB PO PRN (22:06)
[2018-03-24] MEDS: HYDROcodone/Acetaminophen 5/325 mg Tablet PO PRN (23:08)
[2018-03-25] MEDS: Morphine 4 MG/ML VIAL SLOW IVP PRN (03:33)
[2018-03-25 04:05] LABS: #Lymphocytes 1.2 thou/uL (1.20-3.40); #Monocytes 1.7 thou/uL (0.11-0.59); #Neutrophils 10.3 thou/uL (1.40-6.50); %Basophils 0.2 % (0.0-1.0); %Eosinophils 0.1 % (0.0-10.0); %Lymphocytes 8.9 % (21.0-51.0); %Monocytes 12.8 % (0.0-10.0); %Neutrophils 77.9 % (42.0-75.0); Hemoglobin 9.2 g/dL (14.0-18.0); Mean Corpuscular HGB CONC 33.8 g/dL (32.0-36.0); Mean Corpuscular Hemoglobin 32.1 pg (27.0-31.0); Mean Corpuscular Volume 94.9 fl (80.0-94.0); Mean Platelet Volume 6.7 fL (7.4-10.4); Platelet Count 199 thou/uL (130-400); RBC Distribution Width 15.4 % (11.5-14.5); Red Blood Cell (RBC) Count 2.86 mill/uL (4.70-6.10); White Blood Cell (WBC) Count 13.2 thou/uL (4.8-10.8)
[2018-03-25 04:07] LABS: INR-International Normal Ratio 1.2; Prothrombin Time 15.4 SEC (12.0-14.7)
[2018-03-25 04:21] LABS: Anion Gap 12 mmol/L (10-20); BUN (Urea Nitrogen) 19 mg/dL (8.4-25.7); Calc. Creatinine Clearance 16 mL/min (70-130); Calcium 8.5 mg/dL (7.8-10.44); Carbon Dioxide 30 mmol/L (22-29); Chloride 97 mmol/L (98-107); Estimated GFR-MDRD 10; Glucose 72 mg/dL (70-105); Potassium 5.1 mmol/L (3.5-5.1); Sodium 134 mmol/L (136-145)
[2018-03-25] MEDS: Dextrose 50% Abboject 50 ML SYRINGE SLOW IVP PRN (05:44)
[2018-03-25] MEDS: Famotidine 20 MG TAB PO SCH (09:04)
[2018-03-25] MEDS: Calcitriol 0.25 MCG CAP PO SCH (09:04)
[2018-03-25] MEDS: cloNIDine 0.1 MG TAB PO PRN (09:06)
[2018-03-25] MEDS: HYDROcodone/Acetaminophen 5/325 mg Tablet PO PRN ×2 (09:09→16:02)
--- NOTE | 2018-03-25 10:25 | PRG ---
DATE OF SERVICE: 03/25/2018 SERVICE: Pulmonary Medicine. INTERVAL HISTORY: The patient was embolized yesterday. Overnight, he had no events. He was a littl e bit dizzy when he got up initially. That being said, he ate and get a little bit better. He had s ome low blood sugars. These have subsequently resolved. He denies any current fevers, chills, nause a or vomiting. There were no overnight events. PHYSICAL EXAMINATION: VITAL SIGNS: Afebrile with a T-max of 99.7, pulse 101, blood pressure 188/87, respirations 13, satur ation 100% on room air. GENERAL: The patient is awake and alert, in no apparent distress. LUNGS: Decent air entry bilaterally with no prolonged expiratory phase, wheezing, rhonchi or crackle s. HEART: Normal rate, regular. ABDOMEN: Soft, nontender, nondistended. Bowel sounds are positive. MUSCULOSKELETAL: No cyanosis or clubbing. There is no pitting in the bilateral lower extremities. NEUROLOGIC: Grossly nonfocal. LABORATORY DATA: WBC 13.2, hemoglobin 9.2, which was an appropriate rise after yesterday's unit of b maria elenaod, platelets 199,000. INR 1.2. Creatinine 5.70. Basic metabolic profile is otherwise unremarkab le. ASSESSMENT: 1. Acute blood loss anemia secondary to left kidney capsular bleed. 2. End-stage renal disease, requiring hemodialysis. 3. History of renal transplant. 4. Deep venous thrombosis, recent. PLAN: The patient has undergone an embolization procedure. We will repeat his hemoglobin this after noon. If he remains stable, he can be transitioned to the medical unit. Pulmonary and Critical Care will continue to follow along for the time being. He will need to be back on anticoagulation eventu ally once cleared by Surgery and Urology.
--- NOTE | 2018-03-25 14:37 | PRG ---
DATE OF SERVICE: 03/25/2018 SUBJECTIVE: Mr. Davison is a 57-year-old male with ESRD and admitted for left renal bleed. He underwent a successful embolization of the left renal artery last night. He is remaining stable. He is feeling better. He has no other complaints. He underwent hemodialysis yesterday without any difficulty. Patient denies any chest pain or shortness of breath. PHYSICAL EXAMINATION: VITAL SIGNS: Blood pressure 138/76, heart rate 110, respiratory rate 15, and pulse ox 99%. GENERAL: Noted to be awake, alert, comfortable, not in distress. SKIN: Adequate turgor. HEENT: Pinkish conjunctivae, anicteric sclerae. NECK: No neck mass, no carotid bruits, no JVD. CHEST: No deformities. LUNGS: Clear breath sounds, no wheezing, no crackles. HEART: Normal sinus rhythm. No murmur, no gallops or rubs. ABDOMEN: Globular, soft, nontender, no masses. EXTREMITIES: No edema, no deformities. MEDICATIONS: 03/25/2018 was reviewed. LABORATORY DATA: On 03/25/2018, white count 13.2, hemoglobin 9.2. Sodium 134, potassium 5.1, chlori de 97, carbon dioxide 30, BUN 19, creatinine 5.7, and calcium 8.5. ASSESSMENT AND PLAN: 1. Status post left renal bleed. Patient is status post embolization of the left renal main artery. Doing well. Stable hemoglobin and hematocrit. 2. End-stage renal disease, stable. We will continue current Tuesday, Tuesday, Tuesday hemodialysis . We are avoiding heparin use due to the recent left renal bleed. Overall, agree with current management. Please note patient has been initiated on Epogen 10,000 unit s subcutaneously every week.
[2018-03-25 15:38] LABS: Hemoglobin 9.3 g/dL (14.0-18.0)
--- NOTE | 2018-03-25 17:19 | PDOC.PN ---
- Subjective Encounter Start Date: 03/25/18 Encounter Start Time: 17:17 Subjective: nsg notes rev, royce ovn, some abd pain earlier but pt denies any -: current abd pain. s/p embolization yday - Objective Resuscitation Status: Resuscitation Status FULL:Full Resuscitation Vital Signs & Weight: Vital Signs (12 hours) Temp Pulse Resp BP Pulse Ox 03/25/18 16:00 99 F 03/25/18 12:00 99.4 F 03/25/18 09:06 188/87 H 03/25/18 07:32 99.2 F 101 H 13 100 03/25/18 07:00 99.2 F Weight Admit Weight 179 lb Weight 179 lb 3.773 oz Most Recent Monitor Data Heart Rate from ECG 108 NIBP 146/73 NIBP BP-Mean 92 Respiration from ECG 13 SpO2 98 I&O: 03/24/18 03/25/18 03/26/18 06:59 06:59 06:59 Intake Total 1170 1731.3 840 Output Total 30 0 0 Balance 1140 1731.3 840 Result Diagrams: 03/25/18 15:28 03/25/18 03:34 Additional Labs: Accuchecks 03/25/18 03/25/18 03/25/18 16:42 11:40 06:15 POC Glucose 134 H 62 L 135 H 03/25/18 03/24/18 03:01 21:17 POC Glucose 79 71 Phys Exam - Physical Examination Constitutional: NAD lying in hospital bed HEENT: PERRLA, moist MMs, sclera anicteric, oral pharynx no lesions Respiratory: no wheezing, no rales, no rhonchi, clear to auscultation bilateral Cardiovascular: RRR, no rub Gastrointestinal: soft, non-tender, positive bowel sounds Musculoskeletal: no edema Neurological: moves all 4 limbs Psychiatric: normal affect, A&O x 3 Dx/Plan - Plan * hx ESRD on HD M/W/F and prior renal transplant * apprec nephrology c/s bleed - L renal capsule * serial H/H, s/p pRBC ovn for decrease in H/H * s/p embolization * apprec VIR c/s * apprec critical care c/s recent DVT on a/c w/ coumadin * vit K prev adm * currently no DVT noted on U/S * continue to hold coumadin diet: renal activity: as acosta dvt ppx if H/H and hemodynamically stable, t/c transfer to tele Review of Systems - Medications/Allergies Allergies/Adverse Reactions: Allergies Allergy/AdvReac Type Severity Reaction Status Date / Time No Known Allergies Allergy Verified 12/15/15 17:56 Medications: Current Medications Acetaminophen (Tylenol) 1,000 mg PO Q6H PRN PRN Reason: Headache/Fever or Mild Pain Last Admin: 03/24/18 22:06 Dose: 1,000 mg Hydrocodone Bitart/Acetaminophen ([place] 5/325) 1 tab PO Q4H PRN PRN Reason: Moderate Pain (4-6) Last Admin: 03/25/18 16:02 Dose: 1 tab Hydrocodone Bitart/Acetaminophen ([place] 5/325) 2 tab PO Q4H PRN PRN Reason: Severe Pain (7-10) Last Admin: 03/24/18 23:08 Dose: 2 tab Calcitriol (Rocaltrol) 0.5 mcg PO DAILY [facility] Last Admin: 03/25/18 09:04 Dose: 0.5 mcg Clonidine (Catapres) 0.1 mg PO Q4H PRN PRN Reason: Systolic BP > 180 Last Admin: 03/25/18 09:06 Dose: 0.1 mg Dextrose/Water (Dextrose 50%) 25 gm SLOW IVP PRN PRN PRN Reason: Hypoglycemia Last Admin: 03/25/18 05:44 Dose: 25 gm Epoetin Joey (Procrit) 10,000 units SC Q7D [facility] Last Admin: 03/23/18 11:14 Dose: 10,000 units Famotidine (Pepcid) 20 mg PO DAILY [facility] Last Admin: 03/25/18 09:04 Dose: 20 mg Glucagon (Glucagon) 1 mg IM PRN PRN PRN Reason: Hypoglycemia Hydralazine HCl (Apresoline) 10 mg SLOW IVP Q4H PRN PRN Reason: Systolic BP > 180 Dextrose/Water (D5w) 1,000 mls @ 0 mls/hr IV .Q0M PRN; As Directed PRN Reason: Hypoglycemia Insulin Human Lispro (Humalog) 0 units SC .MILD SLIDING SCALE PRN PRN Reason: Mild Correctional Scale Insulin Human Lispro (Humalog) 0 units SC .BEDTIME SLIDING SC PRN PRN Reason: Bedtime Correctional Scale Ondansetron HCl (Zofran Odt) 4 mg PO Q6H PRN PRN Reason: Nausea/Vomiting Ondansetron HCl (Zofran) 4 mg IVP Q6H PRN PRN Reason: Nausea/Vomiting
[2018-03-25] MEDS: Acetaminophen 500 MG TAB PO PRN (20:49)
[2018-03-26 05:28] LABS: #Lymphocytes 1.5 thou/uL (1.20-3.40); #Monocytes 1.7 thou/uL (0.11-0.59); #Neutrophils 8.3 thou/uL (1.40-6.50); %Basophils 0.2 % (0.0-1.0); %Eosinophils 0.3 % (0.0-10.0); %Lymphocytes 12.9 % (21.0-51.0); %Monocytes 14.5 % (0.0-10.0); Hemoglobin 9.1 g/dL (14.0-18.0); Mean Corpuscular HGB CONC 34.1 g/dL (32.0-36.0); Mean Corpuscular Hemoglobin 32.7 pg (27.0-31.0); Mean Corpuscular Volume 95.8 fl (80.0-94.0); Mean Platelet Volume 6.7 fL (7.4-10.4); Platelet Count 209 thou/uL (130-400); RBC Distribution Width 15.2 % (11.5-14.5); Red Blood Cell (RBC) Count 2.78 mill/uL (4.70-6.10); White Blood Cell (WBC) Count 11.5 thou/uL (4.8-10.8)
[2018-03-26] MEDS: Famotidine 20 MG TAB PO SCH (08:36)
[2018-03-26] MEDS: Calcitriol 0.25 MCG CAP PO SCH (08:36)
--- NOTE | 2018-03-26 10:23 | PDOC.PN ---
- Subjective Encounter Start Date: 03/26/18 Encounter Start Time: 10:22 CC: anemia sub: pt denies dyspnea, says he feels better - Objective Resuscitation Status: Resuscitation Status FULL:Full Resuscitation Vital Signs & Weight: Vital Signs (12 hours) Temp Pulse Resp BP Pulse Ox 03/26/18 08:00 99.2 F 102 H 16 97 03/26/18 07:00 99.2 F 102 H 16 154/77 H 97 Weight Admit Weight 179 lb Weight 179 lb 3.773 oz Most Recent Monitor Data Heart Rate from ECG 108 NIBP 146/73 NIBP BP-Mean 92 Respiration from ECG 13 SpO2 98 I&O: 03/25/18 03/26/18 03/27/18 06:59 06:59 06:59 Intake Total 1731.3 1354 Output Total 0 0 Balance 1731.3 1354 Result Diagrams: 03/26/18 04:59 03/25/18 03:34 Additional Labs: Accuchecks 03/26/18 03/26/18 03/26/18 05:42 02:13 00:55 POC Glucose 60 L 104 60 L 03/25/18 03/25/18 03/25/18 22:14 20:42 16:42 POC Glucose 69 L 62 L 134 H 03/25/18 11:40 POC Glucose 62 L Dx/Plan - Plan * . onstitutional: NAD HEENT: PERRLA, moist MMs, sclera anicteric, oral pharynx no lesions Respiratory: no wheezing, no rales, no rhonchi, clear to auscultation bilateral Cardiovascular: RRR, no rub Gastrointestinal: soft, non-tender, positive bowel sounds Musculoskeletal: no edema Neurological: moves all 4 limbs Psychiatric: normal affect, A&O x 3 Dx/Plan - Plan * hx ESRD on HD M/W/F and prior renal transplant * apprec nephrology c/s bleed - L renal capsule * serial H/H, HGB STABLE. S/OP BLOOD TRANSFUSION. Repeat cbc in am * s/p embolization * apprec VIR c/s recent DVT on a/c w/ coumadin * vit K prev adm * currently no DVT noted on U/S * continue to hold coumadin due to significnat bleeding diet: renal activity: as acosta dvt ppx d/w pt & RN
[2018-03-26] MEDS ORDERED: Polyethylene Glycol 3350 17 GM Packet PO SCH (15:30)
[2018-03-26] MEDS ORDERED: Docusate 100 MG CAP PO SCH ×2 (15:30→21:00)
[2018-03-26] MEDS: Acetaminophen 500 MG TAB PO PRN (17:05)
[2018-03-26] MEDS: Polyethylene Glycol 3350 17 GM Packet PO SCH (20:41)
[2018-03-26] MEDS: cloNIDine 0.1 MG TAB PO PRN (21:39)
[2018-03-27 04:31] LABS: #Eosinphils 0.2 thou/uL (0.0-0.7); #Lymphocytes 1.2 thou/uL (1.20-3.40); #Monocytes 1.2 thou/uL (0.11-0.59); #Neutrophils 6.3 thou/uL (1.40-6.50); %Basophils 0.4 % (0.0-1.0); %Eosinophils 1.9 % (0.0-10.0); %Lymphocytes 13.6 % (21.0-51.0); %Monocytes 13.2 % (0.0-10.0); Hemoglobin 8.4 g/dL (14.0-18.0); Mean Corpuscular HGB CONC 34.8 g/dL (32.0-36.0); Mean Corpuscular Hemoglobin 32.9 pg (27.0-31.0); Mean Corpuscular Volume 94.5 fl (80.0-94.0); Mean Platelet Volume 6.3 fL (7.4-10.4); Platelet Count 228 thou/uL (130-400); RBC Distribution Width 15.2 % (11.5-14.5); Red Blood Cell (RBC) Count 2.56 mill/uL (4.70-6.10); White Blood Cell (WBC) Count 8.9 thou/uL (4.8-10.8)
--- NOTE | 2018-03-27 08:27 | PRG ---
DATE OF SERVICE: 03/27/2018 SERVICE: Renal Medicine. SUBJECTIVE: The patient is a 57-year-old male with ESRD. I am managing him for his mainten ance hemodialysis. I am at the bedside supervising his dialysis. He was recently admitted due to a left renal hemorrhage. He underwent arterial embolization with this. He is doing better. He has no new complaints today. He denies any chest pain or shortness of breath. PHYSICAL EXAMINATION: VITAL SIGNS: Blood pressure 166/87, heart rate 89, respiratory rate 18, temperature 98.3, pulse ox 9 4%. GENERAL EXAM: Awake, alert, comfortable, not in distress. SKIN: Adequate turgor. HEENT: Slightly pale conjunctivae. Anicteric sclerae. NECK: No neck mass. No carotid bruits, no JVD. CHEST: No deformities. LUNGS: Clear breath sounds, no wheezing, no crackles. HEART: Normal sinus rhythm. No murmur, no gallops, no rubs. ABDOMEN: Globular, soft, nontender, no masses. EXTREMITIES: No edema. Medications of 03/27/2018 reviewed. LABORATORY DATA: Laboratories of 03/27/2018, white count 8.9, hemoglobin 8.4, hematocrit 24.2. 02/28, sugar 103. ASSESSMENT AND PLAN: 1. Status post left renal hemorrhage - the patient is status post arterial embolization, stable. Co ntinue to monitor H and H. 2. Chronic anemia - currently on maintenance Epogen 10,000 units subcutaneously every week. 3. End-stage renal disease, stable. Due to the recent left renal bleed, the patient is not on any h eparin with the dialysis. Again, fluid removal only as tolerated. Recheck basic metabolic panel and CBC in a.m.
[2018-03-27] MEDS: Famotidine 20 MG TAB PO SCH ×2 (08:57→13:42)
[2018-03-27] MEDS: Calcitriol 0.25 MCG CAP PO SCH ×2 (08:57→13:42)
[2018-03-27] MEDS: Docusate 100 MG CAP PO SCH ×2 (08:57→13:43)
[2018-03-27] MEDS: Polyethylene Glycol 3350 17 GM Packet PO SCH ×2 (08:58→20:11)
[2018-03-27 09:15] LABS: Anion Gap 14 mmol/L (10-20); BUN (Urea Nitrogen) 39 mg/dL (8.4-25.7); Calc. Creatinine Clearance 11 mL/min (70-130); Calcium 8.8 mg/dL (7.8-10.44); Carbon Dioxide 29 mmol/L (22-29); Chloride 94 mmol/L (98-107); Estimated GFR-MDRD 7; Glucose 83 mg/dL (70-105); Potassium 5.2 mmol/L (3.5-5.1); Sodium 132 mmol/L (136-145)
--- NOTE | 2018-03-27 17:45 | PDOC.PN ---
- Subjective Encounter Start Date: 03/27/18 Encounter Start Time: 17:35 Subjective: f/u for L renal hemorrhage on Coumadin s/p L renal artery coil embolization -: POD #3. H/H stable s/p 3u total PRBC's. Feels fine. No pain or fever. -: Tolerated HD today. - Objective Resuscitation Status: Resuscitation Status FULL:Full Resuscitation MAR Reviewed: Yes Vital Signs & Weight: Vital Signs (12 hours) Temp Pulse Resp BP Pulse Ox 03/27/18 13:40 97.9 F 103 H 16 159/95 H 99 03/27/18 08:00 98.3 F 89 18 94 L 03/27/18 07:22 98.3 F 89 18 166/87 H 94 L Weight Admit Weight 179 lb Weight 179 lb 3.773 oz Most Recent Monitor Data Heart Rate from ECG 108 NIBP 146/73 NIBP BP-Mean 92 Respiration from ECG 13 SpO2 98 I&O: 03/26/18 03/27/18 03/28/18 06:59 06:59 06:59 Intake Total 1354 1270 100 Output Total 0 Balance 1354 1270 100 Result Diagrams: 03/27/18 04:02 03/27/18 08:32 Additional Labs: Accuchecks 03/27/18 03/27/18 03/27/18 16:50 13:42 05:25 POC Glucose 115 H 81 103 03/26/18 03/26/18 03/25/18 21:41 20:42 16:08 POC Glucose 105 58 L* 54 L* 03/25/18 05:43 POC Glucose 47 L* Laboratory Tests 03/24/18 03/25/18 03/25/18 18:50 03:34 15:28 Hgb 10.0 L 9.2 L 9.3 L 03/26/18 04:59 Hgb 9.1 L Phys Exam - Physical Examination Constitutional: NAD HEENT: PERRLA, moist MMs, sclera anicteric, oral pharynx no lesions Neck: no nodes, no JVD, supple Respiratory: no wheezing, no rales, no rhonchi, clear to auscultation bilateral S1, S2 Cardiovascular: RRR, no significant murmur, no rub, gallop Gastrointestinal: soft, non-tender, no distention, positive bowel sounds Musculoskeletal: no edema, pulses present Neurological: non-focal, normal sensation, moves all 4 limbs Psychiatric: normal affect, A&O x 3 Skin: no rash, normal turgor, cap refill <2 seconds Dx/Plan (1) Renal hemorrhage, left Code(s): N28.89 - OTHER SPECIFIED DISORDERS OF KIDNEY AND URETER Status: Acute Comment: s/p coil embolization POD #3, hold Coumadin and consider d/c indefinitely (2) Acute blood loss anemia Code(s): D62 - ACUTE POSTHEMORRHAGIC ANEMIA Status: Acute Comment: s/p 3u PRBC's with stabel H/H currently, repeat H/H in am, Procrit 10K units q7days (3) Warfarin-induced coagulopathy Code(s): D68.32 - HEMORRHAGIC DISORD D/T EXTRINSIC CIRCULATING ANTICOAGULANTS; T45.515A - ADVERSE EFFECT OF ANTICOAGULANTS, INITIAL ENCOUNTER Status: Acute Comment: Hold off Coumadin indefinitely, high risk of re-bleed (4) ESRD (end stage renal disease) on dialysis Code(s): N18.6 - END STAGE RENAL DISEASE; Z99.2 - DEPENDENCE ON RENAL DIALYSIS Status: Chronic Comment: HD completed today, will follow up with outpt dialysis on 03/29/18 - Plan plan discussed w/ family, social services aide, out of bed/ambulate Stable overall -: Serial H/H monitoring -: Hold off Coumadin -: OOB/ambulate -: AM lab: H/H * Home in am
[2018-03-27] MEDS: HYDROcodone/Acetaminophen 5/325 mg Tablet PO PRN ×2 (20:10→23:59)
--- NOTE | 2018-03-28 02:47 | PRG ---
DATE OF SERVICE: 03/26/2018 SUBJECTIVE: The patient states he is doing well. He is not complaining of any pain. He is having a mild amount of left-sided discomfort, but this has been stable since his embolization yesterday. He denies any shortness of breath or chest pain. His groin stick area is not bothering him. He is scheduled to be dialyzed tomorrow. PHYSICAL EXAMINATION: VITAL SIGNS: Temperature 99.2, pulse 102, respirations 16, blood pressure 154/ 77, saturation 97% on room air. GENERAL: No apparent distress, communicative and alert. CARDIOVASCULAR: Sinus tachycardia with normal S1 and S2. ABDOMEN: Soft. Very minimal tenderness to palpation on the left. No tenderness on the right. No suprapubic tenderness. GENITOURINARY: Normal penis and scrotum. There is a compression dressing on his left groin where he had his entry site for embolization, which does not show any evidence of hematoma or ecchymosis. EXTREMITIES: 1+ edema bilaterally. LABORATORY EVALUATION: The patient's hemoglobin has been stable, it was 9.2 yesterday morning, 9.3 as of 0330 hours yesterday, and 9.1 today morning. Creatinine is currently 5.7 with a potassium of 5.1, sodium of 134. ASSESSMENT AND PLAN: A 57-year-old male with end-stage renal disease with a perinephric bleed that was refractory to conservative measures. He ended up undergoing embolization of the entire kidney, which appears to have stopped bleeding. His hemoglobin is now stable. I would recommend continued monitoring of hemoglobin with another H and H tomorrow. He probably will be dialyzed tomorrow as per routine. At that point, I will leave it up to Dr. Yao, his urologist and his primary team to decide whether or not he is stable enough for discharge. Dr. Yao is planning repeat imaging in the future to try and identify the source of the bleeding in case the patient does have a renal cell carcinoma or other mass that caused the bleeding. He appears to be stable right now and I do not think anything further needs to be done at this time other than continued monitoring. I will sign out to Dr. Anderson and he will resume care in the morning. ANA
[2018-03-28 05:22] LABS: Hemoglobin 9.5 g/dL (14.0-18.0); Platelet Count 315 thou/uL (130-400)
--- NOTE | 2018-03-28 06:03 | PRG ---
DATE OF SERVICE: 03/26/2018 SERVICE: Pulmonary Medicine. INTERVAL HISTORY: The patient is doing great from a respiratory standpoint. He denies any shortness of breath or chest discomfort. He denies having any pain in his belly. Otherwise, there has been n o interval change to his condition. OBJECTIVE: VITAL SIGNS: Afebrile with a T-max of 99.5 degrees, pulse 102, blood pressure 154/77, respirations 1 6, saturation 97% on room air. GENERAL: Patient is awake, alert, in no apparent distress. LUNGS: Decent air entry. Dependent crackles are minimal. There is no prolonged expiratory phase or wheezing. HEART: Normal rate, regular. ABDOMEN: Soft, nontender, nondistended. Bowel sounds are positive. MUSCULOSKELETAL: No cyanosis or clubbing. There is no pitting in the bilateral lower extremities. NEUROLOGIC: Grossly nonfocal. LABORATORY DATA: WBC 11.5, hemoglobin 9.3 and stable, platelets 209,000. INR 1.2. Blood sugar rang es from 60 to 104. ASSESSMENT: 1. Acute blood loss anemia secondary to left kidney capsular bleed. 2. End-stage renal disease, on hemodialysis. 3. History of renal transplant. 4. Deep venous thrombosis, recent. DISCUSSION AND PLAN: The embolization procedure is apparently successfully ligated the flow of blood . We will repeat a hemoglobin tomorrow morning. We will need to restart anticoagulation based on Ur ology timeline. Pulmonary critical care will continue to follow along. Dr. Mckeon will resume care in the morning.
--- NOTE | 2018-03-28 07:23 | PRG ---
DATE OF SERVICE: 03/26/2018 SUBJECTIVE: Mr. Davison is a 57-year-old male with known history of failed renal allograft, currently on maintenance hemodialysis and recently admitted for left retroperitoneal hemorrhage. He underwent embolization of the left renal artery. He is doing well. His hemoglobin and hematocrit i s holding steady. No new complaints today. No chest pain or shortness of breath. OBJECTIVE: VITAL SIGNS: Blood pressure is 154/77, heart rate 102, respiratory rate 16, temperature 99.2, pulse ox 97%. GENERAL: Awake, alert, and comfortable, not in distress. SKIN: Adequate turgor. HEENT: He has slightly pale conjunctivae. Anicteric sclerae. NECK: No neck mass. No carotid bruits. No JVD. CHEST: No deformities. LUNGS: Clear breath sounds. No wheezing. No crackles. HEART: Normal sinus rhythm. No murmurs, gallops, or rubs. ABDOMEN: Globular, soft, nontender, no masses. EXTREMITIES: Positive for edema. MEDICATIONS: Of 03/26/2018 reviewed. LABORATORY DATA: Of 03/26/2018, white count 11.5, hemoglobin 9.1. Glucose of 03/26/2018 was 60. ASSESSMENT AND PLAN: 1. End-stage renal disease, stable. No indication for any dialytic intervention. Continue Tuesday, Tuesday, and Tuesday hemodialysis. Due to recent bleed, we will be holding off any heparin with tr lysis. 2. Left retroperitoneal/kidney hemorrhage - status post arterial embolization of the renal artery. Doing well. No evidence of recurrence of the bleeding. Recheck CBC in a.m. Agree with current management.
--- NOTE | 2018-03-28 09:05 | PRG ---
DATE OF SERVICE: 03/28/2018 Mr. Davison is doing well. He denies any abdominal pain. He says he is ready to go home. PHYSICAL EXAMINATION: VITAL SIGNS: Temperature is 97.9, pulse 95, blood pressure 189/84, O2 sat 100%. HEENT: Unremarkable. NECK: No JVD. CHEST: Clear. CARDIAC: S1 and S2 regular. ABDOMEN: Soft. EXTREMITIES: No edema. LABORATORY DATA: Hemoglobin 9.5, hematocrit 28.9, platelet count 315. ASSESSMENT: 1. Status post left kidney hematoma. 2. Status post anticoagulation for deep venous thrombosis - the patient did have 3 months of treatme nt. RECOMMENDATION: 1. I would recommend no further anticoagulation at this time other than aspirin. If cleared for ant icoagulation, a low dose of Eliquis 2.5 mg a day could be considered. 2. From my standpoint, he is ready to go home.
[2018-03-28] MEDS: Docusate 100 MG CAP PO SCH (09:10)
[2018-03-28] MEDS: Polyethylene Glycol 3350 17 GM Packet PO SCH (09:10)
[2018-03-28] MEDS: Famotidine 20 MG TAB PO SCH (09:10)
[2018-03-28] MEDS: Calcitriol 0.25 MCG CAP PO SCH (09:10)
[2018-03-28 11:43] VITALS: BP 168/86; TEMP 98.7
--- NOTE | 2018-03-28 19:11 | DIS ---
DATE OF ADMISSION: 03/23/2018 DATE OF DISCHARGE: 03/28/2018 DISCHARGE DIAGNOSES: 1. Left renal hemorrhage, status post coil embolization on 03/24/2018. 2. Acute blood loss anemia, status post 3 units of packed red blood cells. 3. Warfarin induced coagulopathy. 4. End-stage renal disease with hemodialysis. 5. Hypertension, stable. CONSULTATIONS: Dr. Yao and Gaurav with Urology Service. Dr. Norris with Nephrology Service. Dr. Nadya paredes with Pulmonology Service. Dr. Monge and Dr. Mike Dale with Vascular Surgery Service . PERTINENT LAB AND X-RAY FINDINGS: Sodium ranged between 132-137, creatinine ranged between 5.7-8.61. BNP 661. CBC showed a white blood cell count ranging between 8.6-13.2, hemoglobin ranged between 7 .1-10.9. INR ranged between 1.2-2.5. CT of the abdomen and pelvis dated 03/23/2018 showed large sub capsular hematoma with active contrast extravasation from the left kidney with moderate size retroper itoneal hematoma. Portable chest x-ray dated 03/23/2018 showed mild cardiomegaly with mild pulmonary edema. CT of the abdomen and pelvis dated 03/23/2018 showed increasing left nephric/perinephric hem atoma. Bilateral pleural effusions noted. HOSPITAL COURSE: The patient was initially admitted to the Critical Care Unit after presenting with left lower quadrant abdominal pain in the context of chronic Coumadin therapy with a CT of the abdome n and pelvis confirming left renal hemorrhage with retroperitoneal involvement. The patient was give n vitamin K 10 mg IV push as well as Kcentra 1000 units x1 dose in the emergency room. The patient w as continued on IV morphine sulfate for pain control and serial H&H monitoring showed decreasing leve ls, prompting transfusion of packed red blood cells. The patient was evaluated by the Nephrology Ser vice and Vascular Surgery Service after the patient was deemed an appropriate candidate for embolizat ion therapy after conservative measures were unsuccessful and stemming the patient's hemorrhage. The patient received a total of 3 units of packed red blood cells with normalization of INR values. The patient underwent left renal coil embolization on 03/24/2018 with stable hemoglobin trend after the procedure. The patient continued to receive maintenance hemodialysis during this hospital course for end-stage renal disease without complication. Current recommendations are to discontinue anticoagul ation therapy indefinitely due to high risk for rebleeding. Overall, the patient did remain clinical ly stable for remainder the hospital course, tolerating regular oral intake, voiding appropriately. I have examined the patient at the time of discharge and discussed laboratory and x-ray findings as w ell as followup instructions and disposition planning. The patient verbalizes understanding and agre ement and ready for discharge on 03/28/2018. DISCHARGE MEDICATIONS: 1. Procrit 10,000 units subcutaneously q.7 days with hemodialysis. 2. Losartan 100 mg 1 tab p.o. daily. 3. Renvela 1600 mg p.o. t.i.d. 4. Tramadol 50 mg p.o. b.i.d. p.r.n. FOLLOWUP: The patient may follow up with his primary care provider Dr. Uyen Abrams, within 7 days o f discharge. The patient will follow up with Dr. Norris with Nephrology Service and hemodialysis Tuesday , Tuesday, and Tuesday. CONDITION ON DISCHARGE: Stable. ACTIVITY: ad chalino. DIET: Renal. CODE STATUS: FULL. DISPOSITION: Home on 03/28/2018. Total time preparing in coordination discharge is 35 minutes.
--- NOTE | 2018-05-13 14:29 | EKG ---
Test Reason : Blood Pressure : / mmHG Vent. Rate : 079 BPM Atrial Rate : 079 BPM P-R Int : 176 ms QRS Dur : 084 ms QT Int : 406 ms P-R-T Axes : 020 -33 036 degrees QTc Int : 465 ms Normal sinus rhythm Possible Left atrial enlargement Left axis deviation Abnormal ECG Confirmed by SHAWN DEWITT, CATHY ([id number]), editor city [place] ([id number]) on 05/13/2018 2:28:29 PM Referred By: Confirmed By:CATHY ESCOBAR MD
== END 2018-03-28 13:41 | disposition home or self-care (01) | DRG 987 ==
LOC: ERS 01:38 → CCU 04:00 → T4-B 03-25 18:10
PROVIDERS: ADMIT Family Medicine; ATTEND Family Medicine
PROC: 30233N1 Transfusion of Nonautologous Red Blood Cells into Peripheral Vein, Percutaneous Approach (ICD-10-PCS; 2018-03-23)
PROC: 04LA3DZ Occlusion of Left Renal Artery with Intraluminal Device, Percutaneous Approach (ICD-10-PCS; principal; 2018-03-24)
PROC: B4101ZZ Fluoroscopy of Abdominal Aorta using Low Osmolar Contrast (ICD-10-PCS; 2018-03-24)
PROC: B4171ZZ Fluoroscopy of Left Renal Artery using Low Osmolar Contrast (ICD-10-PCS; 2018-03-24)
DX: D68.32 Hemorrhagic disorder due to extrinsic circulating anticoagulants (principal); N18.6 End stage renal disease; K66.1 Hemoperitoneum; I12.0 Hypertensive chronic kidney disease with stage 5 chronic kidney disease or end stage renal disease; D62 Acute posthemorrhagic anemia; N28.89 Other specified disorders of kidney and ureter; E11.9 Type 2 diabetes mellitus without complications; T45.515A Adverse effect of anticoagulants, initial encounter; Z99.2 Dependence on renal dialysis; Z98.85 Transplanted organ removal status; Z86.718 Personal history of other venous thrombosis and embolism; Z79.01 Long term (current) use of anticoagulants; Z79.84 Long term (current) use of oral hypoglycemic drugs; Z79.52 Long term (current) use of systemic steroids; Z79.899 Other long term (current) drug therapy
CPT/HCPCS: 36415; 36416; 36430; 37244; 71045; 74176; 74177; 76942; 80048; 80053; 82550; 82553; 83690; 83880; 84484; 85007; 85014; 85018; 85025; 85027; 85049; 85610; 85730; 86850; 86900; 86901; 90935; 93005; 96365; 96375; 96376; 99152; C1769; C9132; G0257; J1644; J2001; J2250; J2270; J2550; J3010; J3430; J7517; P9016; Q0162; Q4081

== ENCOUNTER 2020-06-19 11:21 | Outpatient (CLI) | payer MEDICARE, BC | END 2020-06-19 11:22 | disposition home or self-care (01) | LOC: ULT 11:21 | PROVIDERS: ATTEND Internal Medicine | DX: I11.9 Hypertensive heart disease without heart failure (principal); R06.00 Dyspnea, unspecified; R01.1 Cardiac murmur, unspecified; I08.3 Combined rheumatic disorders of mitral, aortic and tricuspid valves | CPT/HCPCS: 93306 ==